=== PATIENT | female | born 1955 | race Hispanic/Latino ===

== ENCOUNTER → 2022-10-05 | Outpatient (CLI) | payer MEDICARE | END | disposition home or self-care (01) | LOC: RAH 09:38 | PROVIDERS: ATTEND Advanced Practice Midwife | DX: R92.2 Inconclusive mammogram (principal) | CPT/HCPCS: 77065 ==

== ENCOUNTER 2024-08-14 12:48 | Emergency (ER) | payer MEDICARE ==
[~2024-08-14] VITALS: Ht 165.1 cm; Wt 46.3 kg
[2024-08-14 12:51] VITALS: TEMP 98.9
[2024-08-14 13:24] LABS: BASOPHILS # (AUTO) 0.03 K/uL (0.00-0.20); BASOPHILS % (AUTO) 0.5 % (0.0-5.0); EOSINOPHILS # (AUTO) 0.02 K/uL (0.00-0.70); EOSINOPHILS % (AUTO) 0.3 % (0.0-8.0); HEMATOCRIT 38.3 % (36-48); IMMATURE GRANULOCYTE ABSOLUTE 0.02 K/uL (0-1); LYMPHOCYTES # (AUTO) 1.5 K/uL (1.0-4.8); LYMPHOCYTES % (AUTO) 24.7 % (21.0-51.0); MEAN CORPUSCULAR HEMOGLOBIN 25.7 pg (27.0-33.0); MEAN CORPUSCULAR HGB CONC 32.4 g/dL (32.0-36.0); MEAN CORPUSCULAR VOLUME 79.5 fL (79-99); MONOCYTES # (AUTO) 0.4 K/uL (0.1-1.0); MONOCYTES % (AUTO) 6.1 % (3.0-13.0); NEUTROPHILS # (AUTO) 4.1 K/uL (1.8-7.7); NEUTROPHILS % (AUTO) 68.1 % (40.0-77.0); PLATELET COUNT (AUTO) 202 K/uL (130-400); RED BLOOD CELL COUNT(AUTO) 4.82 MIL/uL (4.00-5.50); WHITE BLOOD COUNT (AUTO) 6.1 K/uL (4.8-10.8)
[2024-08-14 13:29] LABS: CREATININE 0.7 mg/dL (0.5-1.0); POTASSIUM 3.5 mmol/L (3.5-5.1)
--- NOTE | 2024-08-14 14:16 | EKG ---
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
--- NOTE | 2024-08-14 15:34 | ERN ---
ED Note History of Present Illness Stated Complaint: WEAKNESS, BURPING Chief Complaint: Other Problems Time Seen by MD: 12:50 Time Seen by Midlevel: 13:00 Dictation: 69-year-old female with a history of gastritis brought in today with complaints of excessive burping and feeling nauseous. As per daughter these symptoms started this morning. States however on Sunday she was already seen and put was prescribed Chlorpromazine and they scheduled a GI consult for Sunday. Patient took the medication right before coming into the emergency room. Denies any chest pain, chest discomfort, vomiting, fevers, diarrhea, shortness a breath. Allergies: Coded Allergies: No Known Drug Allergies (Unverified Allergy, Unknown, 08/14/24) Past Medical History Past Medical History: Other Additional Past Medical Hx: GASTRITIS Surgical History: BTL Review of System Dictation Constitutional: Negative for fever,chills, and weight loss Eyes: Negative for injury, pain,redness, and discharge ENT: Negative for injury,pain or swelling Cardiovascular: Negative for chest pain, palpitations, and edema Respiratory: Negative for shortness of breath, cough, and wheezing, Abdomen/GI: Negative for abdominal pain, nausea, vomiting, diarrhea, and constipation Back: Negative for injury and pain : Negative for injury, bleeding and discharge MS/Extremity: Negative for injury and deformity Skin: Negative for rash, and discoloration Neuro: Negative for headache, weakness, numbness, tingling, and seizure Psych: Negative for suicide ideation, homicidal ideation, and hallucinations Review of Systems: was completed Initial Vital Sign VS Vital Signs Date Time Temp Pulse Resp B/P (MAP) Pulse Ox O2 Delivery O2 Flow Rate FiO2 08/14/24 12:51 99.0 109 18 120/79 97 Room Air Physical Exam Dictation General: awake, alert, NAD Head/Face: Normocephalic, atraumatic Eyes: PERRL, EOMI, vision at baseline ENT: oral cavity clear, TMs clear, no signs of infection Neck: Trachea midline, supple, no nuchal rigidity Cardiovascular: RRR, normal S1/S2, No MRGs, no JVD Respiratory: CTAB, no respiratory distress, No rales or wheezes Abdomen: Soft, non-tender, non-distended, normal bowel sounds, no guarding or rebound. Skin: Warm, dry, normal turgor, no rash MS/Extremity: Pulses equal, no cyanosis, neurovascular intact, FROM Neuro: COAx4, GCS 15, strength 5/5, CN 2-12 intact, normal cerebellar exam, normal gait, Psych: Normal behavior, mood, and affect normal Results (Laboratory/Radiology) Laboratory/Radiology Laboratory Tests Test 08/14/24 13:13 White Blood Count 6.1 K/uL (4.8-10.8) Red Blood Count 4.82 MIL/uL (4.00-5.50) Hemoglobin 12.4 g/dL (12.0-16.0) Hematocrit 38.3 % (36-48) Mean Corpuscular Volume 79.5 fL (79-99) Mean Corpuscular Hemoglobin 25.7 pg (27.0-33.0) L Mean Corpuscular Hemoglobin Concent 32.4 g/dL (32.0-36.0) Red Cell Distribution Width 15.0 % (11.0-15.5) Platelet Count 202 K/uL (130-400) Mean Platelet Volume 10.4 fL (7.5-10.5) Immature Granulocyte % (Auto) 0.3 % (0-1) Neutrophils (%) (Auto) 68.1 % (40.0-77.0) Lymphocytes (%) (Auto) 24.7 % (21.0-51.0) Monocytes (%) (Auto) 6.1 % (3.0-13.0) Eosinophils (%) (Auto) 0.3 % (0.0-8.0) Basophils (%) (Auto) 0.5 % (0.0-5.0) Neutrophils # (Auto) 4.1 K/uL (1.8-7.7) Lymphocytes # (Auto) 1.5 K/uL (1.0-4.8) Monocytes # (Auto) 0.4 K/uL (0.1-1.0) Eosinophils # (Auto) 0.02 K/uL (0.00-0.70) Basophils # (Auto) 0.03 K/uL (0.00-0.20) Absolute Immature Granulocyte (auto 0.02 K/uL (0-1) Nucleated Red Blood Cells 0.0 % (0.0-0.19) Sodium Level 132 mmol/L (136-145) L Potassium Level 3.5 mmol/L (3.5-5.1) Chloride Level 95 mmol/L (101-111) L Carbon Dioxide Level 26 mmol/L (21-32) Blood Urea Nitrogen 9 mg/dL (7-18) Creatinine 0.7 mg/dL (0.5-1.0) Glomerular Filtration Rate Calc 94 mL/min (>90) Random Glucose 123 mg/dL (70-105) H Total Calcium 8.8 mg/dL (8.5-10.1) Troponin I High Sensitivity 5 ng/L (4-50) Lipase 30 U/L (16-77) Labs Reviewed?: Yes EKG Comment: EKGs done at 1407, sinus rhythm at a rate of 94. No STEMI interpreted by ER MD. ED Course ED Course Orders Procedure Category Date Status Time Cbc With Differential LAB 08/14/24 Complete 13:01 Basic Metabolic Panel LAB 08/14/24 Complete 13:01 Lipase LAB 08/14/24 Complete 13:01 Troponin I High LAB 08/14/24 Complete Sensitivity 13:01 12 Lead Ekg Tracing- EKG 08/14/24 Complete Technical 13:01 Chest 1vw RAD 08/14/24 Taken 13:01 0.9%Nacl 1000ml (Ns PHA 08/14/24 Logged 1000ml) 15:27 Vital Signs Date Time Temp Pulse Resp B/P (MAP) Pulse Ox O2 Delivery O2 Flow Rate FiO2 08/14/24 12:51 99.0 109 18 120/79 97 Room Air Medical Decision Making MDM MDM: 69-year-old female with a history of gastritis brought in today with complaints of excessive burping and feeling nauseous. As per daughter these symptoms started this morning. States however on Sunday she was already seen and put was prescribed Chlorpromazine and they scheduled a GI consult for Sunday. Patient took the medication right before coming into the emergency room. Denies any chest pain, chest discomfort, vomiting, fevers, diarrhea, shortness a breath.CBC shows no leukocytosis, no anemia, no thrombocytopenia. Chemistry shows mild dehydration sodium of 132, NS given in the emergency room. Normal kidney function. Troponin is negative. EKGs did not show any ST elevations or dysrhythmias. Patient states feels better after she took her home medications the chlorpromazine. Educated to keep her appointment with the GI on [place] and to return if anything worsens. Daughter and patient verbalized understanding, answered all questions. Differential diagnosis: ACS, persistent hiccups, dehydration Rationale: Tests considered and ordered secondary to shared decision making include: Previous outside records reviewed: Old ER visits. Risk of complication and/or morbidity or mortality of patient management: None Medications-Per medication reconciliation Need for hospitalization: Patient does not meet criteria for hospitalization. Need for emergency major/minor surgery: No There are no social concerns with this patient. Prescription drug management Prescriptions will include symptomatic care Patient's prior external medical records from other ER visits were reviewed by me as indicated. Prior testing and results from previous visits were reviewed. Prior tests were taken into account with medical decision making and resource utilization, independent historian/historians were used to obtain complete medical history. I independently interpreted the test that were performed, results were reviewed by me and considered findings on radiology if ordered. Medical management and examination interpretation discussions were had by me wit h other qualified healthcare professionals as indicated for the patient's care. DX & DISP Disposition: Discharge Departure Impression: Primary Impression: Hiccups Additional Impression: Dehydration Condition: Stable Additional Instructions: seguir con tu margi adam el especialista. Regresa si tus symptomas empeoran. Referrals: LIN DIANE PA-C (PCP) Time of Disposition: 15:34 I have reviewed the case, and I agree with, Diagnosis and Plan DAMIR CABRALES NP Aug 14, 2024 15:34
[2024-08-14 15:41] VITALS: BP 129/75; PULSE 87; RESP 20; O2SAT 98
[2024-08-14] MEDS: 0.9%NACL 1000ML 1,000 ML IV STA (15:42)
--- NOTE | 2024-08-14 15:51 | HMCIMG ---
CHEST 1VW HISTORY: Shortness of breath COMPARISON: None FINDINGS: A frontal projection of the chest was obtained. Mild bilateral pulmonary infiltrates are seen may be related to mild pulmonary vascular congestion with possible superimposed pneumonitis. The heart is normal in size. Degenerative changes are seen. No evidence of aortic calcification is seen. IMPRESSION: 1. Mild bilateral pulmonary infiltrates are seen may be related to mild pulmonary vascular congestion with possible superimposed pneumonitis.
== END 2024-08-14 16:14 | disposition home or self-care (01) ==
LOC: EDH 12:48
DX: E86.0 Dehydration (principal); R06.6 Hiccough; Z98.51 Tubal ligation status; Z98.890 Other specified postprocedural states
CPT/HCPCS: 99285; 96360; 71045; 84484; 80048; 83690; 85025; 36415; 93005; J7030

== ENCOUNTER → 2025-02-16 | Outpatient (CLI) | payer MEDICARE ==
[~2025-02-16] MED LIST: CHLO25 PO; METO5 PO; PANT40TA PO; PROM25TA7 PO
--- NOTE | 2025-02-17 14:14 | HMCIMG ---
Exam: Hepatobiliary scan. Comparison: None. History: Right upper quadrant abdominal pain. Findings: After administration of 5.6 mCi of technetium 99 Mebrofenin IV, images were obtained over the next 60 min at 5-minute intervals. This demonstrates visualization of activity in the liver, which proceeds into the biliary tree, gallbladder, and proximal small bowel. Following the administration of 2.71 mcg Sincalide IV over 30 min, additional images at 120 sec increments were performed for 30 min. The Gallbladder ejection fraction is 54% (abnormal < 38%). Symptoms of administration: None. IMPRESSION: Unremarkable hepatobiliary scan with a normal Gall bladder ejection fraction of 54%. /Yarelis
== END | disposition home or self-care (01) ==
LOC: RAH 06:56
PROVIDERS: ATTEND Internal Medicine Gastroenterology
DX: R11.0 Nausea (principal)
CPT/HCPCS: 78227; A9537